=== PATIENT | female | born 1975 | race Caucasian/White ===

== ENCOUNTER 2022-09-13 09:09 | Day surgery (SDC) | payer OTHER ==
[~2022-09-13] VITALS: Ht 162.6 cm; Wt 97.5 kg
[2022-09-13] MEDS ORDERED: LIDOCAINE 2% 100 MG/5 ML UJET TP ONE (10:07)
[2022-09-13] MEDS ORDERED: diphenhydrAMINE 50 MG/ML VIAL ONE (10:07)
[2022-09-13] MEDS ORDERED: MIDAZOLAM 2 MG/2 ML VIAL ONE (10:07)
[2022-09-13] MEDS ORDERED: fentaNYL citrate 0.05 MG/ML VIAL ONE (10:07)
[2022-09-13] MEDS ORDERED: MIDAZOLAM 2 MG/2 ML VIAL IVP ONE (10:50)
[2022-09-13] MEDS ORDERED: fentaNYL citrate 0.05 MG/ML VIAL IVP ONE (10:50)
== END 2022-09-13 11:10 | disposition home or self-care (01) ==
LOC: MDS 09:09 → MMU 09:10 → MDS 11:10
PROVIDERS: ATTEND Internal Medicine Gastroenterology
DX: K59.00 Constipation, unspecified (principal); Z86.010 Personal history of colon polyps; Z88.5 Allergy status to narcotic agent; Z98.84 Bariatric surgery status; Z79.899 Other long term (current) drug therapy
CPT/HCPCS: 45378; J2250; J3010; J1200